=== PATIENT | female | born 2000 | race Caucasian/White ===

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

== ENCOUNTER 2023-01-01 16:05 | Emergency (ER) | payer OTHER ==
[~2023-01-01] VITALS: Ht 160 cm; Wt 122.5 kg
[2023-01-01 17:44] LABS: BASOPHILS ABSOLUTE AUTO 0.02 K/mm3 (0.00-0.23); BASOPHILS PERCENT AUTO 0 % (0-2); EOSINOPHILS ABSOLUTE AUTO 0.06 K/mm3 (0.00-0.68); EOSINOPHILS PERCENT AUTO 1 % (0-6); Hemoglobin 12.1 g/dL (11.5-16.0); IMMATURE GRAN ABSOLUTE AUTO 0.02 K/mm3 (0.00-0.10); IMMATURE GRAN PERCENT AUTO 0 % (0-1); LYMPHOCYTES ABSOLUTE AUTO 2.13 K/mm3 (0.84-5.20); LYMPHOCYTES PERCENT AUTO 21 % (21-46); MONOCYTES ABSOLUTE AUTO 0.63 K/mm3 (0.16-1.47); MONOCYTES PERCENT AUTO 6 % (4-13); Mean Corpuscular HGB 27.4 pg (26.0-34.0); Mean Corpuscular HGB Conc 32.7 g/dL (31.5-36.5); Mean Corpuscular Volume 84 fL (80-100); Mean Platelet Volume 8.9 fL (9.1-12.4); NEUTROPHILS ABSOLUTE AUTO 7.09 K/mm3 (1.96-9.15); NEUTROPHILS PERCENT AUTO 71 % (41-73); Platelet Count 306 K/mm3 (150-400); RDW Standard Deviation 39.9 fL (35.1-46.3); Red Blood Cell Count 4.42 M/mm3 (3.80-5.20); White Blood Cell Count 9.95 K/mm3 (4.00-11.30)
[2023-01-01 18:12] LABS: Albumin, Blood 3.7 g/dL (3.4-5.0); Albumin/Globulin Ratio 0.9 (0.8-1.8); Bilirubin, Total 0.3 mg/dL (0.1-1.0); Bun/Creatinine Ratio 12.7 (12.0-20.0); Calcium, Blood 9.3 mg/dL (8.5-10.1); Creatinine, Blood 0.63 mg/dL (0.40-1.00); Globulin, Blood 4.2 g/dL (2.2-4.0); Potassium, Blood 3.4 mmol/L (3.5-5.5); Total Protein, Blood 7.9 g/dL (6.4-8.2)
[2023-01-01 22:37] VITALS: BP 154/83
== END 2023-01-01 22:35 | disposition home or self-care (01) ==
LOC: ER 16:05
PROVIDERS: Student in an Organized Health Care Education/Training Program
DX: O26.891 Other specified pregnancy related conditions, first trimester (principal); R11.2 Nausea with vomiting, unspecified; Z3A.10 10 weeks gestation of pregnancy
CPT/HCPCS: 76801; 80053; 83690; 84702; 85025; 99283-25

== ENCOUNTER → 2023-01-04 | Outpatient (CLI) | payer OTHER ==
[2023-01-06 09:01] LABS: APTIMA MEDIA TYPE Urine; C. TRACHOMATIS BY TMA Negative (Negative); N. GONORRHOEAE BY TMA Negative (Negative); SPECIMEN SOURCE Urine
== END | disposition home or self-care (01) ==
LOC: LAB SHORT 16:34 → LAB 16:34
PROVIDERS: Registered Nurse Community Health
DX: Z34.01 Encounter for supervision of normal first pregnancy, first trimester (principal)
CPT/HCPCS: 87491; 87591

== ENCOUNTER 2023-01-19 15:42 | Emergency (ER) | payer OTHER ==
[~2023-01-19] VITALS: Ht 160 cm; Wt 115.7 kg
[2023-01-19 17:09] LABS: Source, Urine Clean Catch
[2023-01-19 17:14] LABS: Appearance, Urine Clear (Clear); Bilirubin, Urine Neg (Neg); Blood, Urine Neg (Neg); Color, Urine Yellow (P-Yellow); Glucose Qualitative, Urine Neg (Neg); Ketones, Urine Neg (Neg); Leukocyte Esterase, Urine Neg (Neg); Nitrite, Urine Neg (Neg); Protein, Urine Neg (Neg); Specific Gravity, Urine 1.015 (1.003-1.022); Urobilinogen, Urine NORM (Normal)
[2023-01-19 18:19] VITALS: BP 134/88
== END 2023-01-19 18:24 | disposition home or self-care (01) ==
LOC: ER 15:42
PROVIDERS: Physician Assistant
DX: O20.9 Hemorrhage in early pregnancy, unspecified (principal); Z3A.13 13 weeks gestation of pregnancy; Z79.899 Other long term (current) drug therapy
CPT/HCPCS: 76801; 81003; 84702; 99284-25

== ENCOUNTER 2023-08-10 11:20 | Inpatient (IN) | payer OTHER ==
[2023-08-10] VITALS (10 sets, daily range): BP systolic 92–161; BP diastolic 32–99
[~2023-08-10] VITALS: Ht 160 cm; Wt 134.1 kg
[2023-08-10] MEDS ORDERED: Methylergonovine Maleate 0.2MG / ML 1ML Amp IM SCH (11:25)
[2023-08-10] MEDS ORDERED: Lidocaine HCl 1% 30 ML SDV XX SCH (11:25)
[2023-08-10] MEDS ORDERED: Lactated Ringer's 1,000 ML IV PRN (11:25)
[2023-08-10] MEDS ORDERED: OXYTOCIN/RINGER'S LACTATE 500 ML IV SCH ×2 (11:25)
[2023-08-10] MEDS ORDERED: Bupivacaine HCl 2.5 MG/ML 10ML P/F Injection XX SCH (11:25)
[2023-08-10] MEDS ORDERED: Castor Oil 59.146 ML BTL TOP SCH (11:25)
[2023-08-10] MEDS ORDERED: Bupivacaine 0.5% HCl 5 MG/ML 30MLVIAL XX SCH (11:25)
[2023-08-10] MEDS ORDERED: Oxytocin 10 Unit / ML Vial IM SCH (11:25)
[2023-08-10] MEDS ORDERED: Lactated Ringer's 1,000 ML IV SCH ×5 (11:25→21:50)
[2023-08-10] MEDS ORDERED: Misoprostol 200 MCG Tab PR SCH (11:25)
[2023-08-10] MEDS ORDERED: FentaNYL Citrate 50 MCG/ML 2 ML Injection IV PRN (11:35)
[2023-08-10] MEDS ORDERED: Ondansetron HCl 2 MG / ML 2ML Vial IV PRN ×2 (11:35→21:50)
[2023-08-10] MEDS ORDERED: Calcium Carbonate 500 MG Tab Chew PO PRN (11:35)
[2023-08-10 12:25] LABS: BASOPHILS ABSOLUTE AUTO 0.02 K/mm3 (0.00-0.23); BASOPHILS PERCENT AUTO 0 % (0-2); EOSINOPHILS ABSOLUTE AUTO 0.02 K/mm3 (0.00-0.68); EOSINOPHILS PERCENT AUTO 0 % (0-6); Hematocrit 28.6 % (33.0-51.0); Hemoglobin 9.2 g/dL (11.5-16.0); IMMATURE GRAN ABSOLUTE AUTO 0.05 K/mm3 (0.00-0.10); IMMATURE GRAN PERCENT AUTO 1 % (0-1); LYMPHOCYTES ABSOLUTE AUTO 1.24 K/mm3 (0.84-5.20); LYMPHOCYTES PERCENT AUTO 12 % (21-46); MONOCYTES ABSOLUTE AUTO 0.49 K/mm3 (0.16-1.47); MONOCYTES PERCENT AUTO 5 % (4-13); Mean Corpuscular HGB 25.3 pg (26.0-34.0); Mean Corpuscular HGB Conc 32.2 g/dL (31.5-36.5); Mean Corpuscular Volume 79 fL (80-100); Mean Platelet Volume 9.3 fL (9.1-12.4); NEUTROPHILS ABSOLUTE AUTO 8.41 K/mm3 (1.96-9.15); NEUTROPHILS PERCENT AUTO 82 % (41-73); Platelet Count 279 K/mm3 (150-400); RDW Coefficient Variation 15.9 % (11.7-14.2); RDW Standard Deviation 45.4 fL (35.1-46.3); Red Blood Cell Count 3.63 M/mm3 (3.80-5.20); White Blood Cell Count 10.23 K/mm3 (4.00-11.30)
[2023-08-10] MEDS ORDERED: FentaNYL 2mcg/ml-Bup 0.1% Epd 250 ML EPI PRN (15:15)
[2023-08-10] MEDS ORDERED: ePHEDrine Sulfate 50 MG/ML 1ML Injection XX PRN (15:15)
[2023-08-10] MEDS ORDERED: CeFAZolin Sodium 3,000 MG in NS 100 ML IV SCH ×2 (19:55→23:15)
[2023-08-10] MEDS ORDERED: Metoclopramide HCl 5MG / ML 2ML Vial IV ONE (20:10)
[2023-08-10] MEDS ORDERED: Citric Acid/Sodium Citrate 30 ML BTL PO ONE (20:10)
[2023-08-10] MEDS ORDERED: FentaNYL Citrate 50 MCG/ML 2 ML Injection ONE (20:11)
[2023-08-10] MEDS ORDERED: Phenylephrine HCl 100 MCG/ML-NS 10MLSYR (1MG/10ML) ONE ×2 (20:51→21:03)
--- NOTE | 2023-08-10 21:02 | NUR ---
08/10/232101 Haider Degroot BABY BOY BORN AT 2054 CORD BLOOD SENT WITH ROSEY QUAN CORD SEGMENT SENT WITH LISSETH
[2023-08-10] MEDS ORDERED: Oxytocin 10 Unit / ML Vial ONE (21:03)
[2023-08-10] MEDS ORDERED: Ketorolac Tromethamine 30mg Vial ONE (21:03)
[2023-08-10 21:19] LABS: PO2 Cord - Arterial < 14 mmHg (16-20); pH Cord - Arterial 7.23 (7.28-7.35)
[2023-08-10 21:23] LABS: PCO2 Cord - Venous 53.1 mmHg (40-50); PO2 Cord - Venous 17.1 mmHg (28-32); pH Umbilical Cord - Venous 7.26 (7.26-7.35)
[2023-08-10] MEDS ORDERED: DiphenhydrAMINE HCL 25 MG Cap PO PRN (21:45)
[2023-08-10] MEDS ORDERED: Lanolin Cream TOP PRN (21:45)
[2023-08-10] MEDS ORDERED: OxyCODONE 5 mg/Acetamin 325 mg TABLET PO PRN (21:45)
[2023-08-10] MEDS ORDERED: Carboprost Tromethamine 250 MCG/ML 1ML Amp IM PRN (21:45)
[2023-08-10] MEDS ORDERED: Simethicone 80 MG Chew PO PRN (21:50)
[2023-08-10] MEDS ORDERED: Acetaminophen 500 MG Tab PO PRN (21:50)
[2023-08-10] MEDS ORDERED: OxyCODONE HCL 5 MG TAB PO PRN (21:50)
[2023-08-10] MEDS ORDERED: LR Oxytocin 20 Units 1,000 ML IV SCH (21:50)
[2023-08-10] MEDS ORDERED: Magnesium Hydroxide Conc 10 ML UDC PO PRN (21:55)
[2023-08-10] MEDS ORDERED: Methylergonovine Maleate 0.2 MG Tab PO PRN (21:55)
[2023-08-10] MEDS ORDERED: Rho(D) Immune Globulin 300 MCG / SYR IM ONE (21:55)
[2023-08-10] MEDS ORDERED: Ketorolac Tromethamine 30mg Vial IV SCH (22:00)
[2023-08-10] MEDS ORDERED: CeFAZolin Sodium 3,000 MG in NS 100 ML IV PRN ×2 (22:55→23:15)
[2023-08-11] VITALS (11 sets, daily range): BP systolic 120–139; BP diastolic 58–84
[2023-08-11] MEDS ORDERED: Ibuprofen 400 MG Tab PO SCH
[2023-08-11 06:53] LABS: BASOPHILS ABSOLUTE AUTO 0.03 K/mm3 (0.00-0.23); BASOPHILS PERCENT AUTO 0 % (0-2); EOSINOPHILS ABSOLUTE AUTO 0.02 K/mm3 (0.00-0.68); EOSINOPHILS PERCENT AUTO 0 % (0-6); Hematocrit 22.7 % (33.0-51.0); Hemoglobin 7.3 g/dL (11.5-16.0); IMMATURE GRAN ABSOLUTE AUTO 0.04 K/mm3 (0.00-0.10); IMMATURE GRAN PERCENT AUTO 0 % (0-1); LYMPHOCYTES PERCENT AUTO 20 % (21-46); MONOCYTES ABSOLUTE AUTO 0.57 K/mm3 (0.16-1.47); MONOCYTES PERCENT AUTO 6 % (4-13); Mean Corpuscular HGB 25.8 pg (26.0-34.0); Mean Corpuscular HGB Conc 32.2 g/dL (31.5-36.5); Mean Corpuscular Volume 80 fL (80-100); Mean Platelet Volume 9.3 fL (9.1-12.4); NEUTROPHILS ABSOLUTE AUTO 7.51 K/mm3 (1.96-9.15); NEUTROPHILS PERCENT AUTO 74 % (41-73); Platelet Count 233 K/mm3 (150-400); RDW Coefficient Variation 15.9 % (11.7-14.2); Red Blood Cell Count 2.83 M/mm3 (3.80-5.20); White Blood Cell Count 10.17 K/mm3 (4.00-11.30)
[2023-08-11] MEDS ORDERED: Prenatal Vit/FE Fumarate/FA 1 Tab PO SCH (09:00)
[2023-08-11] MEDS ORDERED: Docusate Sodium 100 MG Cap PO SCH (09:00)
[2023-08-11] MEDS ORDERED: NS 250 ML IV SCH (17:15)
[2023-08-12 00:01] VITALS: BP 124/60
[2023-08-12 04:30] VITALS: BP 127/66
[2023-08-12 06:58] LABS: Hematocrit 28.7 % (33.0-51.0); Hemoglobin 9.1 g/dL (11.5-16.0)
[2023-08-12 07:07] VITALS: BP 140/78
--- NOTE | 2023-08-12 07:21 | NUR ---
ENCOURAGED PT TO WALK THROUGH HALLWAYS THIS MORNING.
--- NOTE | 2023-08-12 10:30 | NUR ---
THIS RN REQUESTED PT AMBULATE DOWN THE HALLWAY TODAY. PT AMBULATED TO THE ICE MACHINE AND BACK WITH NO ASSISTANCE, ABDOMINAL BINDER ON.
[2023-08-12 11:17] VITALS: BP 139/76
--- NOTE | 2023-08-12 14:36 | NUR ---
DISCHARGE INSTRUCTIONS, WRITTEN AND VERBAL, GIVEN TO PT. ANSWERED ALL QUESTIONS AND CONCERNS. FOLLOW UP APPOINTMENT SCHEDULED. ALL PERSONAL BELONGINGS RETURNED. EDPS OF 2. IV DISCONTINUED. PT IS DISCHARGED HOME, DRIVEN BY HER MOTHER.
== END 2023-08-12 14:50 | disposition home or self-care (01) | DRG 788 ==
LOC: BC 11:20 → OBS 11:20 → BC 11:30
PROVIDERS: Obstetrics & Gynecology; ADMIT Registered Nurse Community Health
PROC: 30233N1 Transfusion of Nonautologous Red Blood Cells into Peripheral Vein, Percutaneous Approach (ICD-10-PCS; 2023-08-10)
PROC: 4A033R1 Measurement of Arterial Saturation, Peripheral, Percutaneous Approach (ICD-10-PCS; 2023-08-10)
PROC: 10D00Z1 Extraction of Products of Conception, Low, Open Approach (ICD-10-PCS; principal; 2023-08-10 20:00)
DX: O48.0 Post-term pregnancy (principal); O64.8XX0 Obstructed labor due to other malposition and malpresentation, not applicable or unspecified; Z3A.41 41 weeks gestation of pregnancy; Z37.0 Single live birth; O77.0 Labor and delivery complicated by meconium in amniotic fluid; O69.81X0 Labor and delivery complicated by cord around neck, without compression, not applicable or unspecified
CPT/HCPCS: 36415; 36430; 59025; 82803; 85014; 85018; 85025; 86850; 86900; 86901; 86923; 99214; A9270; J0690; J1885; J2371; J2405; J2590; J2765; J3010; J7120; P9016

== ENCOUNTER → 2023-08-22 | Outpatient (CLI) | payer OTHER ==
[2023-08-22 16:39] LABS: BASOPHILS ABSOLUTE AUTO 0.06 K/mm3 (0.00-0.23); BASOPHILS PERCENT AUTO 1 % (0-2); EOSINOPHILS ABSOLUTE AUTO 0.11 K/mm3 (0.00-0.68); EOSINOPHILS PERCENT AUTO 1 % (0-6); Hematocrit 37.9 % (33.0-51.0); Hemoglobin 11.9 g/dL (11.5-16.0); IMMATURE GRAN ABSOLUTE AUTO 0.02 K/mm3 (0.00-0.10); IMMATURE GRAN PERCENT AUTO 0 % (0-1); LYMPHOCYTES ABSOLUTE AUTO 1.65 K/mm3 (0.84-5.20); LYMPHOCYTES PERCENT AUTO 18 % (21-46); MONOCYTES ABSOLUTE AUTO 0.48 K/mm3 (0.16-1.47); MONOCYTES PERCENT AUTO 5 % (4-13); Mean Corpuscular HGB 25.4 pg (26.0-34.0); Mean Corpuscular HGB Conc 31.4 g/dL (31.5-36.5); Mean Corpuscular Volume 81 fL (80-100); Mean Platelet Volume 8.7 fL (9.1-12.4); NEUTROPHILS ABSOLUTE AUTO 6.68 K/mm3 (1.96-9.15); NEUTROPHILS PERCENT AUTO 74 % (41-73); Platelet Count 419 K/mm3 (150-400); RDW Coefficient Variation 15.2 % (11.7-14.2); RDW Standard Deviation 44.9 fL (35.1-46.3); Red Blood Cell Count 4.68 M/mm3 (3.80-5.20)
[2023-08-22 17:04] LABS: Albumin, Blood 3.2 g/dL (3.4-5.0); Albumin/Globulin Ratio 0.7 (0.8-1.8); Bilirubin, Total 0.5 mg/dL (0.1-1.0); Bun/Creatinine Ratio 13.4 (12.0-20.0); Calcium, Blood 9.3 mg/dL (8.5-10.1); Creatinine, Blood 0.75 mg/dL (0.40-1.00); Globulin, Blood 4.3 g/dL (2.2-4.0); Potassium, Blood 4.2 mmol/L (3.5-5.5); Total Protein, Blood 7.5 g/dL (6.4-8.2)
== END ==
LOC: LAB SHORT 14:43 → LAB 14:43
PROVIDERS: Registered Nurse Community Health
DX: Z39.2 Encounter for routine postpartum follow-up (principal)
CPT/HCPCS: 80053; 85025

== ENCOUNTER → 2024-10-24 | Outpatient (CLI) | payer OTHER ==
[2024-10-24 17:59] LABS: Hematocrit 38.2 % (33.0-51.0); Hemoglobin 12.4 g/dL (11.5-16.0); Mean Corpuscular HGB Conc 32.5 g/dL (31.5-36.5); Mean Corpuscular Volume 79 fL (80-100); NRBC ABSOLUTE 0.00 K/mm3 (0.00-0.02); NRBC Auto 0.0 /100 WBC (0.0-0.2); Platelet Count 425 K/mm3 (150-400); RDW Coefficient Variation 14.3 % (11.7-14.2); RDW Standard Deviation 40.9 fL (35.1-46.3)
[2024-10-24 19:18] LABS: LDL/HDL RATIO 1.2; Thyroid Stimulating Hormone 2.870 uIU/mL (0.360-4.800); Very Low Density Lipoprot Chol 36 mg/dL (6-28)
[2024-10-24 19:19] LABS: Alanine Aminotransfer (ALT/SGP 29 U/L (12-78); Albumin, Blood 4.1 g/dL (3.4-5.0); Albumin/Globulin Ratio 1.0 (0.8-1.8); Anion Gap 9 mmol/L (3-11); Aspartate Aminotrans (AST/SGOT 16 U/L (12-37); Bilirubin, Total 0.3 mg/dL (0.1-1.0); Blood Urea Nitrogen 15 mg/dL (8-24); CHOL/HDL RATIO 2.6; CO2, Blood 26 mmol/L (21-32); Calcium, Blood 9.5 mg/dL (8.5-10.1); Chloride, Blood 103 mmol/L (98-108); Cholesterol 200 mg/dL (50-200); Creatinine, Blood 0.61 mg/dL (0.40-1.00); Globulin, Blood 4.3 g/dL (2.2-4.0); Glucose, Blood 92 mg/dL (70-99); HDL Cholesterol 76 mg/dL (>39); Low Density Lipoprotein Chol 88 mg/dL (0-110); Potassium, Blood 3.6 mmol/L (3.5-5.5); Sodium, Blood 134 mmol/L (136-145); Total Protein, Blood 8.4 g/dL (6.4-8.2); Triglycerides 182 mg/dL (30-140)
== END ==
LOC: LAB SHORT 17:49 → LAB 17:49
DX: E66.813 Obesity, class 3 (principal); Z68.43 Body mass index [BMI] 50.0-59.9, adult
CPT/HCPCS: 80053; 80061; 84443; 85027